=== PATIENT | female | born 1970 | race Caucasian/White ===

== ENCOUNTER → 2021-03-02 | Outpatient (CLI) | payer OTHER | LOC: M LABSMTC 11:19 | PROVIDERS: ATTEND Anesthesiology | DX: Z11.52 Encounter for screening for COVID-19 (principal); Z20.822 Contact with and (suspected) exposure to COVID-19 ==

== ENCOUNTER 2021-03-07 11:13 | Day surgery (SDC) | payer OTHER ==
[~2021-03-07] VITALS: Ht 157.5 cm; Wt 99.7 kg
[~2021-03-07 11:13] MED LIST: FLUTISP NARES; LISI10TA22 PO; LR 1,000 ML IV ONE; METF-838 PO
[2021-03-07] MEDS ORDERED: LIDOCAINE 2% 100MG/5ML SDV (FOR ANES.) As Ordered ONE (11:34)
[2021-03-07] MEDS ORDERED: dexameTHASONE 4 MG/ML 1ML VIAL (J1100 PER 1MG) As Ordered ONE (11:34)
[2021-03-07] MEDS ORDERED: propofoL 200 MG/20 ML VIAL As Ordered ONE (11:34)
[2021-03-07] MEDS ORDERED: ROCURONIUM BROMIDE 50 MG/5 ML VIAL As Ordered ONE (11:34)
[2021-03-07] MEDS ORDERED: MIDAZOLAM INJ 2MG/2ML VIAL (J2250 PER 1MG) As Ordered ONE (11:35)
[2021-03-07] MEDS ORDERED: fentaNYL 100 MCG/2 ML INJECTION (J3010) As Ordered ONE (11:35)
[2021-03-07] MEDS ORDERED: LIDOCAINE W/EPINEPHRINE 1% 20ML VIAL As Ordered ONE (13:58)
[2021-03-07] MEDS ORDERED: OXYMETAZOLINE 0.05% NASAL SPRAY (AFRIN) As Ordered ONE (13:58)
[2021-03-07] MEDS ORDERED: METHYLENE BLUE 0.5% (5MG/ML) 10 ML AMP (PROVAYBLUE) As Ordered ONE (13:58)
[2021-03-07] MEDS ORDERED: COCAINE 4% 4ML NASAL SOLUTION BTL As Ordered ONE (14:19)
[2021-03-07] MEDS ORDERED: ACETAMINOPHEN 1000MG 100ML IV BTL (OFIRMEV) (J0131 PER 10MG) As Ordered ONE (14:41)
[2021-03-07] MEDS ORDERED: SUGAMMADEX SODIUM 500 MG/5 ML VIAL (BRIDION) As Ordered ONE (14:41)
[2021-03-07] MEDS ORDERED: LABETALOL 100MG/20ML VIAL As Ordered ONE (15:03)
--- NOTE | 2021-03-07 15:32 | ROOPDOC ---
[facility] Report Of Operation Report of Operation DATE OF PROCEDURE: 03/07/21 PREPROCEDURE DIAGNOSES: Septal deviation, hypertrophic inferior turbinates. POSTPROCEDURE DIAGNOSES: Same. PROCEDURE PERFORMED: Septoplasty, bilateral submucous resection of inferior turbinates. SURGEON: Tomás BARNES BEHAVIOR INTERVENTIONIST: Ubaldo, ANESTHESIA: General. ESTIMATED BLOOD LOSS: Approximately 20 mL. COMPLICATIONS: None. REMARKS: . FINDINGS: SPECIMENS REMOVED: None PROCEDURE NOTE: . Patient was seen in the office and was diagnosed with the above condition. A decision was made in consultation with the patient after explanation of risks and benefits to undergo the above-named procedure. The patient was admitted through the same-day surgery program, taken to the operating room where general anesthetic was administered via intravenous injection. Patient was then intubated endotracheally. The nose was decongested with 4 mL of 4% cocaine solution and nasal pledgets. Patient was draped in the usual sterile fashion. The pledgets were removed. The left septum was injected with 1% lidocaine and epinephrine. Using a Calvert blade to have left hemitransfixion incision was created. Using the [place] elevator. The mucosa was elevated and the subpe richondrial plane. This was extended posteriorly over the perpendicular plate of the ethmoid and inferiorly over the vomer. We the bony and cartilaginous septums with the [place] elevator and elevated on the opposite side. The deviated portion of the bone and cartilage posteriorly was removed. A strip of cartilage was removed inferiorly, taking care to leave more than a centimeter of tip support. There was a deviated portion of cartilage superiorly and caudally. We made several vertical incisions in this cartilage. We elevated on either side of the maxillary crest and the deviated portion was removed with a 4 mm osteotome. A portion of cartilage was then placed back into the flap. We approximated the anterior hemitransfixion incision with interrupted 4-0 chromic suture. The septum was quilted with interrupted 4-0 plain gut suture. The left inferior turbinate was injected with 1% lidocaine with epinephrine. A vertical incision was made with a Calvert blade. We elevated the mucosa off the submucosal plane. We then lateralized this with the Travis elevator. The right inferior turbinate was injected with 1% lidocaine with epinephrine. We elevated the mucosa off the turbinate with the [place] elevator. The 2.9 mm microdebrider blade was used to reduce this along its length. This was then lateralized with a Travis elevator. Magnetic splints were placed on either side of the septum and secured anteriorly with a 3-0 nylon suture. Slim lines were placed against the inferior turbinates and removed in recovery. A mustache dressing was placed under the nose. The patient was then allowed to recover from anesthesia and was taken to the post anesthesia care area in stable condition. There were no complications during this procedure. DESCRIPTION OF PROCEDURE: . Eliot England MD Mar 07, 2021 15:32
[2021-03-07] MEDS ORDERED: METOCLOPRAMIDE INJ 10MG/2ML VIAL (J2765 PER 1) IV PRN (16:15)
[2021-03-07] MEDS ORDERED: MORPHINE 10 MG/ML 1ML VIAL (J2270) IV PRN (16:15)
[2021-03-07] MEDS ORDERED: LR 1,000 ML IV SCH ×2 (16:15)
[2021-03-07] MEDS ORDERED: fentaNYL 100 MCG/2 ML INJECTION (J3010) IV PRN (16:15)
[2021-03-07] MEDS ORDERED: PERCOCET 5MG/325MG TAB PO PRN (16:15)
[2021-03-07] MEDS ORDERED: ONDANSETRON 4MG/2ML VIAL IV PRN ×2 (16:15→16:20)
[2021-03-07] MEDS ORDERED: HYDROcodone/APAP LIQUID 7.5-325MG 15ML UDC (LORTAB ELIXIR) PO PRN (16:20)
--- NOTE | 2021-03-07 20:50 | ECGEPIP ---
[facility] Test Date: 2021-03-07 Pat Name: RUDI STRANGE Department: Room: - Gender: Female Bender Machine: rf : [id number] Requested By: KERI Santo Order Number: [id number] Reading MD: Luis Enrique Brower Measurements Intervals Mission Rate: 84 P: -12 MI: 136 QRS: 211 QRSD: 84 T: 65 QT: 372 QTc: 439 Interpretive Statements Normal sinus rhythm Mission indeterminate Comparison tracing not on file Low QRS complex voltage in the limb leads Delayed anterior R wave progression Pulmonary disease pattern Electronically Signed on 03-07-2021 20:50:36 EDT by Luis Enrique Brower
== END 2021-03-07 16:54 | disposition home or self-care (01) ==
LOC: M SDC 11:13
PROVIDERS: ATTEND Otolaryngology
DX: J34.2 Deviated nasal septum (principal); J34.3 Hypertrophy of nasal turbinates; Z85.528 Personal history of other malignant neoplasm of kidney; Z90.5 Acquired absence of kidney; R73.03 Prediabetes; Z88.1 Allergy status to other antibiotic agents; Z88.0 Allergy status to penicillin; Z88.2 Allergy status to sulfonamides; Z79.899 Other long term (current) drug therapy; Z79.84 Long term (current) use of oral hypoglycemic drugs
CPT/HCPCS: 30520; 30802; 81025; 93005; C9046; J0131; J1100; J2250; J3010; Q9968